=== PATIENT | male | born 1945 | race Two or more races ===

== ENCOUNTER 2018-05-22 07:40 | Outpatient (CLI) | payer OTHER | END 2018-05-22 08:31 | disposition home or self-care (01) | LOC: NUCLEAR 07:40 | DX: I25.10 Atherosclerotic heart disease of native coronary artery without angina pectoris (principal) | CPT/HCPCS: 78452; 93017; A9500 ==

== ENCOUNTER 2019-08-02 21:45 | Emergency (ER) | payer OTHER ==
[~2019-08-02] VITALS: Ht 177.8 cm; Wt 81.6 kg
[2019-08-02] MEDS ORDERED: LOSARTAN-HCTZ1 EAC1 PO (22:10)
[2019-08-02] MEDS ORDERED: SYNTHROID50 MCG PO (22:12)
[2019-08-02] MEDS ORDERED: PROTONIX40 M1 PO (22:13)
== END 2019-08-02 22:49 | disposition home or self-care (01) ==
LOC: ER 21:45
DX: I10 Essential (primary) hypertension (principal); F06.4 Anxiety disorder due to known physiological condition

== ENCOUNTER 2021-07-27 14:29 | Outpatient (CLI) | payer OTHER ==
[~2021-07-27 14:29] MED LIST: LOSARTAN-HCTZ1 EAC1 PO; PROTONIX40 M1 PO; SYNTHROID50 MCG PO
== END 2021-07-27 14:45 | disposition home or self-care (01) ==
LOC: TOM 14:29
PROVIDERS: ATTEND Internal Medicine Cardiovascular Disease
DX: R42 Dizziness and giddiness (principal); I48.0 Paroxysmal atrial fibrillation; I11.9 Hypertensive heart disease without heart failure

== ENCOUNTER 2021-07-30 07:15 | Outpatient (CLI) | payer OTHER | END 2021-07-30 07:16 | disposition home or self-care (01) | LOC: NUCLEAR 07:15 | PROVIDERS: ATTEND Internal Medicine Cardiovascular Disease | DX: I25.10 Atherosclerotic heart disease of native coronary artery without angina pectoris (principal) | CPT/HCPCS: 78454; 93017; A9500; J0153 ==

== ENCOUNTER 2021-07-30 07:43 | Outpatient (CLI) | payer OTHER | END 2021-07-30 07:50 | disposition home or self-care (01) | LOC: LAB 07:43 | PROVIDERS: ATTEND Internal Medicine | DX: U07.1 COVID-19 (principal); B39.1 Chronic pulmonary histoplasmosis capsulati ==